=== PATIENT | female | born 1955 | race African-American/Black ===

== ENCOUNTER 2018-01-21 13:49 | Emergency (ER) | payer MEDICARE, MEDICAID ==
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
[2018-01-21 15:10] LABS: ABSOLUTE BASOPHILS # (AUTO) 0.1 10^3/uL (0.0-0.2); ABSOLUTE EOSINOPHILS # (AUTO) 0.1 10^3/uL (0.0-0.6); ABSOLUTE MONOCYTES (AUTO) 0.7 10^3/uL (0.1-1.4); ABSOLUTE NEUT (AUTO) 5.9 10^3/uL (1.7-8.2); BASOPHILS % (AUTO) 1.2 % (0-2); EOSINOPHILS % (AUTO) 1.2 % (0-6); HEMATOCRIT 39.3 % (36.0-47.0); HEMOGLOBIN 13.3 g/dL (12.0-15.5); LYMPHOCYTES % (AUTO) 30.9 % (13-45); MEAN CORPUSCULAR HGB CONC 33.9 g/dL (32.0-36.0); MEAN CORPUSCULAR VOLUME 92 fl (80-97); PLATELET COUNT 346 10^3/uL (150-450); RED CELL DISTRIBUTION WIDTH 16.3 % (11.5-14.0); SEGMENTED NEUTROPHILS % (AUTO) 59.7 % (42-78); TOTAL CELLS COUNTED % (AUTO) 100 %; WHITE BLOOD COUNT 9.8 10^3/uL (4.0-10.5)
--- NOTE | 2018-01-21 15:21 | ER Document Report ---
ED General - General Chief Complaint: Breathing Difficulty Stated Complaint: DIFFICULTY BREATHING Time Seen by Provider: 01/21/18 14:25 Mode of Arrival: Ambulatory Information source: Patient Notes: This is a 62-year-old female with a history of coronary artery disease (1 stent) , heart murmur, insulin requiring diabetes, hypertension, gout, reactive airway disease who presents to the emergency room with shortness of breath and wheezing for the past 2 weeks. She states she is exposed to a lot of mold at home and she thinks it is triggering her breathing. She states that she has been treated with nebulizer and inhalers in the past with improvement. She was recently sent home from an outside hospital with a nebulizer but has not used it. She denies chest pain. - HPI Onset: Last week Onset/Duration: Gradual Quality of pain: No pain Severity: None Pain Level: Denies Associated symptoms: Other - Wheezing, congestion. denies: Chest pain, Shortness of breath Exacerbated by: Denies Relieved by: Denies Similar symptoms previously: Yes Recently seen / treated by doctor: Yes - Related Data Allergies/Adverse Reactions: Penicillins Allergy (Verified 01/21/18 13:52) Shellfish * [Shellfish] Allergy (Verified 01/21/18 13:52) Past Medical History - General Information source: Patient - Social History Smoking Status: Former Smoker Cigarette use (# per day): No Chew tobacco use (# tins/day): No Frequency of alcohol use: Social Drug Abuse: Marijuana Lives with: Family Family History: Reviewed & Not Pertinent Patient has suicidal ideation: No Patient has homicidal ideation: No - Past Medical History Cardiac Medical History: Reports: Hx Hypercholesterolemia, Hx Hypertension Endocrine Medical History: Reports: Hx Diabetes Mellitus Type 2 Renal/ Medical History: Denies: Hx Peritoneal Dialysis Past Surgical History: Reports: Hx Cardiac Catheterization - stent placement, Hx Gynecologic Surgery - fibroid tumor, Hx Hysterectomy, Hx Orthopedic Surgery - knee, carple tunnel - Immunizations Immunizations up to date: Yes Hx Diphtheria, Pertussis, Tetanus Vaccination: Yes Review of Systems - Review of Systems Constitutional: denies: Chills, Fever EENT: See HPI Cardiovascular: No symptoms reported. denies: Chest pain, Palpitations, Heart racing Respiratory: Cough, Short of breath, Wheezing Gastrointestinal: No symptoms reported Genitourinary: No symptoms reported Female Genitourinary: No symptoms reported Musculoskeletal: No symptoms reported Skin: No symptoms reported Hematologic/Lymphatic: No symptoms reported Neurological/Psychological: No symptoms reported Physical Exam - Vital signs Vitals: Temp Pulse Resp BP Pulse Ox 98.5 F 115 H 14 144/75 H 96 01/21/18 13:57 01/21/18 13:57 01/21/18 13:57 01/21/18 13:57 01/21/18 13:57 Notes: Physical exam: GENERAL: Patient is alert and oriented x3, no acute distress, she is on the phone with a mold shaker for her home. HEAD: Atraumatic, normocephalic. EYES: Pupils equal round and reactive to light, extraocular movements intact, sclera anicteric, conjunctiva are normal. ENT: TMs normal, nares patent, oropharynx clear without exudates. Moist mucous membranes. NECK: Normal range of motion, supple without obvious mass or JVD. LUNGS: She does have some tight breath sounds with some scattered wheezing. HEART: Regular rate and rhythm without murmurs, rubs or gallops. ABDOMEN: Soft, normoactive bowel sounds. No tenderness to palpation. No guarding, no rebound. No masses appreciated. EXTREMITIES: Normal range of motion, no pitting or edema. No clubbing or cyanosis. NEUROLOGICAL: Cranial nerves II through XII grossly intact. Normal speech, moving all extremities. PSYCH: Normal mood, normal affect. SKIN: Warm, Dry, normal turgor, no rashes or lesions noted. Course - Vital Signs Vital signs: Temp Pulse Resp BP Pulse Ox 98.5 F 115 H 21 H 128/90 H 94 01/21/18 19:01 01/21/18 13:57 01/21/18 19:01 01/21/18 19:01 01/21/18 19:01 - Laboratory Result Diagrams: 01/21/18 14:53 01/21/18 14:53 Laboratory results interpreted by me: 01/21/18 01/21/18 01/21/18 14:53 14:53 14:53 RDW 16.3 H Carbon Dioxide 21 L BUN 23 H Glucose 312 H Urine Glucose (UA) 50 H - Diagnostic Test Radiology reviewed: Image reviewed, Reports reviewed - Atelectasis - EKG Interpretation by Me Rate: Tachycardia Rhythm: NSR - EKG shows sinus tachycardia cardia with a ventricular rate of 109 , no acute ST-T wave changes Discharge - Discharge Clinical Impression: Reactive airway disease Condition: Stable Disposition: HOME, SELF-CARE Additional Instructions: As we discussed, want you to take the antibiotics twice daily. Your next dose is in the morning. Take the inhaler: 2 puffs every 4-6 hours as prescribed. Continue current medicines. Follow-up with your primary care doctor. Use the masks that we have given you around the house when you are around mall. Return to the emergency room for worsening shortness of breath. Prescriptions: Doxycycline Hyclate 100 mg PO BID #20 capsule Referrals: RATNA ALVARADO MD [Primary Care Provider] - Follow up in 3-5 days
[2018-01-21 15:24] LABS: APPEARANCE,URINE CLEAR; BILIRUBIN,URINE NEGATIVE (NEGATIVE); COLOR,URINE YELLOW; GLUCOSE, URINE 50 mg/dL (NEGATIVE); KETONES,URINE NEGATIVE (NEGATIVE); LEUKOCYTE ESTERASE,URINE NEGATIVE (NEGATIVE); NITRITE,URINE NEGATIVE (NEGATIVE); PROTEIN,URINE NEGATIVE (NEGATIVE); UROBILINOGEN,URINE NEGATIVE mg/dL (<2.0)
--- NOTE | 2018-01-21 15:32 | RADIOLOGY REPORT (SQ) ---
EXAM DESCRIPTION: CHEST 2 VIEWS COMPLETED DATE/TIME: 01/21/2018 2:56 pm REASON FOR STUDY: Cough, congestion, complains of breathing mold COMPARISON: None. EXAM PARAMETERS: NUMBER OF VIEWS: two views TECHNIQUE: Digital Frontal and Lateral radiographic views of the chest acquired. RADIATION DOSE: NA LIMITATIONS: none FINDINGS: LUNGS AND PLEURA: No masses or pneumothorax. No pleural effusion. Oblique linear density is identified projected over the cardiac silhouette in the lateral projection which could represent a telectatic changes or scarring MEDIASTINUM AND HILAR STRUCTURES: No masses or contour abnormalities. HEART AND VASCULAR STRUCTURES: Heart normal size. No evidence for failure. BONES: No acute findings. HARDWARE: None in the chest. OTHER: No other significant finding. IMPRESSION: Oblique linear density in the lateral projection is noted above which could represent at electatic changes or scarring. Remaining lung brooks are clear. No pleural effusions are identified . Other findings as noted above TECHNICAL DOCUMENTATION: JOB ID: [id number] [employer]- All Rights Reserved Reading location - IP/workstation name: [email or web address]
[2018-01-21 15:40] LABS: ALANINE AMINOTRANSFERASE 22 U/L (9-52); ALBUMIN 4.2 g/dL (3.5-5.0); ALKALINE PHOSPHATASE 114 U/L (38-126); ANION GAP 13 (5-19); ASPARTATE AMINO TRANSFERASE 21 U/L (14-36); BILIRUBIN,DIRECT 0.4 mg/dL (0.0-0.4); BILIRUBIN,TOTAL 0.7 mg/dL (0.2-1.3); BLOOD UREA NITROGEN 23 mg/dL (7-20); CALCIUM 9.7 mg/dL (8.4-10.2); CARBON DIOXIDE 21 mmol/L (22-30); CHLORIDE 106 mmol/L (98-107); GLUCOSE 312 mg/dL (75-110); POTASSIUM 4.1 mmol/L (3.6-5.0); SODIUM 139.6 mmol/L (137-145); TOTAL PROTEIN 6.9 g/dL (6.3-8.2)
[2018-01-21] MEDS ORDERED: IPRATROPIUM/ALBUTEROL 0.5-2.5 MG/3 ML AMPUL NEB ONE (16:40)
[2018-01-21] MEDS ORDERED: PREDNISONE 20 MG TABLET PO ONE (16:41)
[2018-01-21] MEDS ORDERED: ALBUTEROL SULFATE HFA (90 MCG/PUFF) 8 GM MDI (1 MDI/ER DISP) IH PRN (18:42)
[2018-01-21] MEDS ORDERED: DOXYCYCLINE HYCLATE 100 MG TABLET PO ONE (18:43)
[2018-01-21 19:27] VITALS: BP 128/90
--- NOTE | 2018-01-21 20:24 | EKG REPORT ---
SEVERITY:- BORDERLINE ECG - SINUS TACHYCARDIA BORDERLINE REPOL ABNORMALITY, INF-LAT LEADS : Confirmed by: Greg Rose 21-Jan-2018 20:23:32
== END 2018-01-21 19:28 | disposition home or self-care (01) ==
LOC: ER 13:49
DX: J45.909 Unspecified asthma, uncomplicated (principal); R06.00 Dyspnea, unspecified; I25.10 Atherosclerotic heart disease of native coronary artery without angina pectoris; E11.9 Type 2 diabetes mellitus without complications; I10 Essential (primary) hypertension; E78.00 Pure hypercholesterolemia, unspecified; Z79.4 Long term (current) use of insulin; Z88.0 Allergy status to penicillin; Z91.013 Allergy to seafood; Z90.710 Acquired absence of both cervix and uterus
CPT/HCPCS: 93005; 94640; 99285; 36415; 83735; 85025; 80053; 81001; 71046; 93010; A9270 ×3; J3490; J7512; J7620